=== PATIENT | female | born 1985 | race African-American/Black ===

== ENCOUNTER 2018-08-23 17:32 | Emergency (ER) | payer SELFPAY ==
[~2018-08-23] VITALS: Ht 165.1 cm; Wt 77.3 kg
[2018-08-23 17:51] VITALS: Ht 165.1 cm; Wt 77.3 kg
[2018-08-23] MEDS ORDERED: BP MEDICATION (17:52)
[2018-08-23] MEDS ORDERED: BUTALB-APAP-CA1 EACH PO (20:56)
[2018-08-23 21:06] VITALS: BP 112/71
== END 2018-08-23 21:06 | disposition home or self-care (01) ==
LOC: D.ER 17:32
DX: G43.909 Migraine, unspecified, not intractable, without status migrainosus (principal); G47.00 Insomnia, unspecified; F17.200 Nicotine dependence, unspecified, uncomplicated